=== PATIENT | female | born 1950 | race Caucasian/White ===

== ENCOUNTER 2020-02-06 16:46 | Emergency (ER) | payer OTHER ==
[~2020-02-06] VITALS: Ht 170.2 cm; Wt 108.9 kg
[2020-02-06 18:02] VITALS: BP 154/90; Ht 170.2 cm; Wt 108.9 kg
== END 2020-02-06 21:30 | disposition home or self-care (01) ==
LOC: ED 16:46
DX: S09.90XA Unspecified injury of head, initial encounter (principal); I10 Essential (primary) hypertension; W18.09XA Striking against other object with subsequent fall, initial encounter; Y93.89 Activity, other specified; Y92.89 Other specified places as the place of occurrence of the external cause; Y99.8 Other external cause status